=== PATIENT | male | born 1970 | race Caucasian/White ===

== ENCOUNTER 2023-08-21 19:54 | Inpatient (IN) | payer MEDICAID, OTHER, SELFPAY ==
--- NOTE | ~2023-08-21 | CT_ITS ---
EXAMINATION: CT ABDOMEN AND PELVIS WITH CONTRAST CLINICAL INFORMATION: Right lower quadrant abdominal pain. COMPARISON: None available. TECHNIQUE: Multidetector volumetric images were obtained from the superior aspect of the liver through the pubic symphysis following administration 85 mL of Omnipaque 350 intravenous contrast. Sagittal and coronal reformatted images were obtained on the technologist's workstation. Oral contrast: No. This CT examination was performed using dose optimization techniques as appropriate, variously including the following: *Automated exposure control *Adjustment of mA and/or kV according to patient size (this includes techniques or standardized protocols for targeted exams where dose is matched to indication/reason for exam; i.e. extremities or head) *Use of iterative reconstruction technique DLP: 574 mGy-cm FINDINGS: LUNG BASES: The visualized lung bases are unremarkable. LIVER, GALLBLADDER, AND BILIARY TREE: The liver is normal in size, shape, and attenuation. No focal hepatic lesion or biliary ductal dilatation is present. The gallbladder is unremarkable with no evidence of radiopaque gallstones, gallbladder wall thickening, or obvious pericholecystic inflammatory changes. PANCREAS: Unremarkable. SPLEEN: Unremarkable. ADRENAL GLANDS: Unremarkable. KIDNEYS AND URETERS: The kidneys are normal in size, shape, and attenuation. Mild right-sided hydroureteronephrosis. Hydroureter extends to the right inguinal region where there appears to be a change in caliber adjacent to right lower quadrant bowel loops which are just proximal to the inguinal hernia. No renal or ureteral stone. No left-sided hydronephrosis or hydroureter. BLADDER: Unremarkable. GASTROINTESTINAL TRACT: Sigmoid diverticulosis without evidence of acute diverticulitis. No bowel wall thickening or inflammatory change. Unremarkable appendix. Indirect right inguinal hernia containing multiple small bowel loops. There is fecalization proximal to, within, and distal to the inguinal hernia. Findings likely indicate a degree of partial obstruction. No significant bowel dilatation. Minimal associated stranding without significant wall thickening. PERITONEAL CAVITY: Right lower quadrant stranding and trace free fluid. No abscess formation. No intra-abdominal free air. ABDOMINAL WALL: Indirect right inguinal hernia containing small bowel loops. Small amount of free fluid within the hernia. LYMPH NODES: No significant lymphadenopathy. VASCULAR: Unremarkable. PELVIC VISCERA: The prostate and seminal vesicles are unremarkable. OSSEOUS STRUCTURES: Unremarkable. CT/CT abdomen pelvis w IV con IMPRESSION: 1. Indirect right inguinal hernia containing multiple small bowel loops. There is fecalization proximal to, within, and distal to the inguinal hernia. Findings likely indicate a degree of partial obstruction. No significant bowel dilatation or bowel wall thickening. Minimal associated stranding and trace free fluid. No abscess formation. No intra-abdominal free air. 2. Mild right-sided hydroureteronephrosis. Hydroureter extends to the right inguinal region where there appears to be a change in caliber adjacent to right lower quadrant bowel loops which are just proximal to the inguinal hernia, consistent with partial obstruction. No renal or ureteral stone. 4. Sigmoid diverticulosis without evidence of acute diverticulitis. Unremarkable appendix. Fleischner guidelines were followed.
[2023-08-21 19:58] VITALS: BP 146/68; PULSE 80; RESP 16; TEMP 37.5; O2SAT 99; BMI 30.8
[2023-08-21 20:43] LABS: MANUAL DIFF FLAG NO
[2023-08-21 20:44] LABS: Basophils Percent Auto 0.1 % (0-2); Eosinophils Absolute Auto 0.1 X10*3/uL (0.0-0.4); Eosinophils Percent Auto 0.8 % (0-4); Hematocrit 43.9 % (42.0-52.0); Hemoglobin 14.6 g/dl (14.0-18.0); Imm Gran Abs Auto 0.02 X10*3/uL (0.00-0.03); Imm Gran Pct Auto 0.2 % (0.0-0.4); Lymphocytes Absolute Auto 1.9 X10*3/uL (1.2-4.9); Lymphocytes Percent Auto 21.6 % (20-40); Mean Corpuscular HGB Conc 33.3 g/dl (31.0-36.0); Mean Corpuscular Hemoglobin 29.4 pg (27.0-33.0); Mean Corpuscular Volume 88.5 fL (80.0-98.0); Monocytes Absolute Auto 0.5 X10*3/uL (0.1-1.2); Monocytes Percent Auto 6.3 % (2-11); Neutrophils Absolute Auto 6.1 x10*3/uL (2.0-8.3); Platelet Count 194 X10*3/uL (160-400); Red Blood Count 4.96 X10*6/uL (4.60-5.80); Red Cell Distribution Width 12.3 % (11.0-16.0); White Blood Count 8.6 X10*3/uL (4.8-10.8)
[2023-08-21 20:58] LABS: Alanine Aminotransferase 25 U/L (0-40); Albumin Level 4.5 g/dL (3.5-5.0); Alkaline Phosphatase 59 U/L (39-117); Anion Gap 12 (12-20); Aspartate Amino Transferase 20 U/L (5-37); Bilirubin Total 0.3 mg/dL (0.0-1.0); Blood Urea Nitrogen 20 mg/dL (9-16); Calcium 9.2 mg/dL (8.4-10.2); Carbon Dioxide 28 mmol/L (22-29); Chloride 104 mmol/L (96-108); Estimated Glomerular Filt Rate > 60; Glucose Random 108 mg/dL (60-115); Potassium 4.4 mmol/L (3.3-5.1); Sodium 140 mmol/L (135-145); Total Protein 7.5 g/dL (6.5-8.0)
[2023-08-21 21:38] LABS: Appearance Urine Clear; Color Urine Yellow; Glucose Urine UA Negative (Negative); Leukocyte Esterase Urine Negative (Negative); Nitrite Urine Negative (Negative); PH 6.5 (5.0-9.0); Specific Gravity - Urine 1.025 (1.005-1.025); Urine Blood Negative (Negative); Urine Ketones Negative (Negative); Urine Protein Negative (Neg-Trace)
[2023-08-22] MEDS: Acetaminophen 325 MG TABLET 975 MG PO (00:34)
[2023-08-22 00:36] VITALS: BP 139/76; PULSE 84; RESP 17; TEMP 37.2; O2SAT 98
[2023-08-22 08:08] VITALS: BP 163/91; PULSE 76; RESP 19; TEMP 37.1; O2SAT 98
--- NOTE | 2023-08-22 08:12 | ED.ABDPAIN ---
HPI - Abdominal Pain General Chief Complaint: Abdominal Pain Stated Complaint: Abdominal pain Time Seen by Provider: 08/22/23 08:06 Source: patient and family Mode of arrival: ambulatory Limitations: no limitations History of Present Illness ED Provider: DARCIE HPI narrative: 52 yo male with no sig PMH no prior surgeries noted some mild right lower abdominal pain x 2 days that worsened yesterday with nausea and now pain radiating to the R testicle. He has no dysuria or hematuria no past hx of kidney stones. Notes a bulge in abdomen MD elicited complaint: abdominal pain Pertinent past history: none Onset (ago): day(s) (2) Pain Consistency: constant Location: RLQ Severity: moderate Quality: aching Radiation: none Migration to: no migration Exacerbating factors: movement Relieving factors: nothing Associated symptoms: nausea Related Data Allergies Allergy/AdvReac Type Severity Reaction Status Date / Time No Known Allergies Allergy Verified 08/21/23 20:36 Review of Systems Review of Systems Constitutional : No Weight loss, No Fever, No Chills ENT/Mouth : No sore throat, No Rhinorrhea Eyes: No Swelling, No Redness Cardiovascular : No Chest Pain, No SOB, No Edema Respiratory : No Cough, No Sputum, No Wheezing Gastrointestinal : Positive Nausea, no Vomiting, no Diarrhea, positive abdominal Pain, No Hematochezia, No Melena Genitourinary : No Dysuria, No Urinary Frequency, No Hematuria, No Urgency Musculoskeletal : No joint pain, No Myalgias, No Joint Swelling Skin : No Skin Lesions, No rash Neuro : No Weakness, No Numbness, No Dizziness, No Headache All other systems reviewed and are negative. [facility] Past Medical History Attestation statement: The following information was validated with the patient. Source: old records reviewed Medical History No pertinent past medical history Social History Social History (Updated 08/22/23 @ 08:15 by Sharon Reyes DO) Patient Tobacco Use Status: Never used Tobacco Smoked in Last 30 Days: No Use of substances other than those prescribed or required for medical reasons: No Advance Directives: No Advance Directives Information Provided: Yes Do you have a plan to hurt others: No Plan Physical Exam ED Vital Signs: Vital Signs - 24 hr 08/21/23 19:58 08/22/23 00:36 08/22/23 08:08 Temperature 99.5 F 98.9 F 98.8 F Pulse Rate 80 84 76 Respiratory Rate 16 17 19 Blood Pressure 146/68 H 139/76 163/91 H Pulse Oximetry 99 98 98 Oxygen Delivery Method Room Air Room Air Room Air BMI result Body Mass Index 30.8 Appearance: Alert. Oriented X3. No acute distress. Eyes: Pupils equal, round and reactive to light. ENT: Pharynx normal. Neck: Normal inspection. Neck supple. CVS: Normal heart rate and rhythm. Pulses normal. Respiratory: No respiratory distress. Breath sounds normal. Abdomen: slight distention and moderate RLQ ttp with + rovsings sign, has R sided inguinal hernia that I cannot reduce and is very ttp morphine ordered but given duration of symptoms and ttp I am not sure I want to reduce it Skin: Skin warm and dry. Normal skin color. Normal skin turgor. Extremities: No lower extremity edema. No calf ttp Neuro: Oriented X 3. No motor deficit. No sensory deficit. Course Course Course Narrative: Dr. Man has seen the patient at bedside Medical Decision Making Medical Decision Making [facility] Narrative: 52 yo male with no sig PMH here with worsening RLQ pain at this time exam concerning for incarcerated hernia at this time will need basic labs, IV toradol and morphine for pain, CT scan for incarcerated hernia, renal colic, appendicitis. I am going to hold off trying to reduce the hernia given duration of symptoms and degree of pain with distention Differential Diagnosis Differential Diagnoses: The differential diagnosis associated with the presentation includes appendicitis, renal colic, incarcerated hernia Admission/Observation Consideration of admission/observation: Escalation of care including admission/observation considered admit to surgery Consult Healthcare Provider Management of the patient was discussed with: Staffing Administrator Dr. Man to come see patient 918am Lab Data [facility] Lab Attestation statement: I reviewed the patient's lab results. 08/21/23 20:38 08/21/23 20:38 Labs: Lab Results 08/21/23 08/21/23 Range/Units 20:38 21:28 WBC 8.6 (4.8-10.8) X10*3/uL RBC 4.96 (4.60-5.80) X10*6/uL Hgb 14.6 (14.0-18.0) g/dl Hct 43.9 (42.0-52.0) % MCV 88.5 (80.0-98.0) fL MCH 29.4 (27.0-33.0) pg MCHC 33.3 (31.0-36.0) g/dl RDW 12.3 (11.0-16.0) % Plt Count 194 (160-400) X10*3/uL MPV 11.0 (9.4-12.4) fL Immature Gran % (Auto) 0.2 (0.0-0.4) % Neut % (Auto) 71.0 (45-73) % Lymph % (Auto) 21.6 (20-40) % [place] % (Auto) 6.3 (2-11) % Eos % (Auto) 0.8 (0-4) % Baso % (Auto) 0.1 (0-2) % Lymph # (Auto) 1.9 (1.2-4.9) X10*3/uL [place] # (Auto) 0.5 (0.1-1.2) X10*3/uL Eos # (Auto) 0.1 (0.0-0.4) X10*3/uL Baso # (Auto) 0.0 (0.0-0.2) X10*3/uL Abs Immat Gran (auto) 0.02 (0.00-0.03) X10*3/uL Absolute Neuts (auto) 6.1 (2.0-8.3) x10*3/uL Absolute Nucleated RBC 0.000 (0.0-0.012) X10*3/uL Nucleated RBC % (auto) 0.0 (0.0-0.2) /100WBC Sodium 140 (135-145) mmol/L Potassium 4.4 (3.3-5.1) mmol/L Chloride 104 (96-108) mmol/L Carbon Dioxide 28 (22-29) mmol/L Anion Gap 12 (12-20) BUN 20 H (9-16) mg/dL Creatinine 1.23 (0.5-1.4) mg/dL Estim Creat Clear Calc 70.0 Estimated GFR > 60 Random Glucose 108 (60-115) mg/dL Calcium 9.2 (8.4-10.2) mg/dL Total Bilirubin 0.3 (0.0-1.0) mg/dL AST 20 (5-37) U/L ALT 25 (0-40) U/L Alkaline Phosphatase 59 (39-117) U/L Total Protein 7.5 (6.5-8.0) g/dL Albumin 4.5 (3.5-5.0) g/dL Urine Color Yellow Urine Appearance Clear Urine pH 6.5 (5.0-9.0) Ur Specific [place] 1.025 (1.005-1.025) Urine Protein Negative (Neg-Trace) mg/dL Urine Glucose (UA) Negative (Negative) mg/dL Urine Ketones Negative (Negative) mg/dL Urine Blood Negative (Negative) Urine Nitrite Negative (Negative) Ur Leukocyte Esterase Negative (Negative) Independent Interpretation I performed an independent interpretation of an: CT Scan Radiology Impression Discussion of test interpretation with radiology: I have reviewed the radiologist's reading. Independent Historian Clinical information obtained from an independent historian. History obtained from or confirmed by: Other (family) Medications Administered Generic Name Dose Route Start Last Admin Trade Name Freq PRN Reason Stop Dose Admin Sodium Chloride 1,000 mls @ 999 mls/hr 08/22/23 09:16 08/22/23 09:53 Ns IV 08/22/23 10:16 999 mls/hr .Q1H1M ONE Administration Discontinued Medications Generic Name Dose Route Start Last Admin Trade Name Freq PRN Reason Stop Dose Admin Acetaminophen 975 mg 08/22/23 00:31 08/22/23 00:34 Acetaminophen 325 Mg Tablet PO 08/22/23 00:32 975 mg ONCE ONE Administration Sodium Chloride 1,000 mls @ 999 mls/hr 08/22/23 08:09 08/22/23 09:54 Ns IV 08/22/23 09:09 Infused .Q1H1M ONE Infusion Iohexol 85 ml 08/22/23 09:06 08/22/23 09:06 Iohexol 350 Mg/Ml 100 Ml Infus..Btl IV 08/22/23 09:07 85 ml ONCE ONE Administration Ketorolac Tromethamine 15 mg 08/22/23 08:09 08/22/23 08:38 Ketorolac Tromethamine 15 Mg/Ml Vial IVPUSH 08/22/23 08:10 15 mg ONCE ONE Administration Morphine Sulfate 4 mg 08/22/23 08:09 08/22/23 08:38 Morphine Sulfate 4 Mg/Ml Cartridge IVPUSH 08/22/23 08:10 4 mg ONCE ONE Administration Protocol Morphine Sulfate 4 mg 08/22/23 09:16 08/22/23 09:53 Morphine Sulfate 4 Mg/Ml Cartridge IVPUSH 08/22/23 09:17 4 mg ONCE ONE Administration Protocol Ondansetron HCl 4 mg 08/22/23 08:09 08/22/23 08:38 Ondansetron Hcl 4 Mg/2 Ml Vial IVPUSH 08/22/23 08:10 4 mg ONCE ONE Administration Critical Care Time Critical Care Time Critical Care Time: Yes Total Critical Care Time: 45 Attestation: IVF x 2L, repeat IV morphine for pain, surgical consult, pain improvement with IV morphine I attest to this time spent taking care of the patient Discharge Plan Discharge Clinical Impression: Hernia Partial bowel obstruction Qualifiers: Intestinal obstruction type: other intestinal obstruction Qualified Code(s): K56.690 - Other partial intestinal obstruction Patient Disposition: Admitted As Inpatient Print Language: Kinyarwanda
[2023-08-22] MEDS: 0.9 % Sodium Chloride 1,000 ML 999 ML IV ×2 (08:38→09:53)
[2023-08-22] MEDS: Ketorolac Tromethamine 15 MG/ML VIAL IVPUSH (08:38)
[2023-08-22] MEDS: ondansetron HCL 4 MG/2 ML VIAL IVPUSH (08:38)
[2023-08-22] MEDS: Morphine Sulfate 4 MG/ML CARTRIDGE IVPUSH ×2 (08:38→09:53)
--- NOTE | 2023-08-22 08:48 | PC.NURSE ---
pt is alert and oriented, skin appropriate for ethnicity, respirations even and unlabored, pt reports lower right abd pain for a couple of days with nausea and states that his right groin/testicle area feels swollen, also had some difficulty urinating, abd soft but tender, abd sounds in all 4 quadrants
[2023-08-22] MEDS: iohexoL 350 MG/ML 100 ML INFUS..BTL 85 ML IV (09:06)
[2023-08-22 09:55] VITALS: BP 130/77; PULSE 68; RESP 18; TEMP 36.8; O2SAT 97
--- NOTE | 2023-08-22 10:02 | P.HPGS_ITS ---
History of Present Illness History of Present Illness Date of Service: 08/22/23 Chief complaint: non reducible right inguinal hernia Narrative: Dyana Patrick is a 52 year old male presenting to the emergency department yesterday afternoon after developing a painful right inguinal hernia. He reports having the hernia for several years in the lump would come and go however over the past several days the hernias become more persistent and uncomfortable. Over the last 24 hours he also reported nausea and vomiting because of the right groin pain. He denies fever or chills. He subsequently presented to the emergency department for further evaluation. Workup revealed a normal WBC. CT abdomen and pelvis confirmed the right inguinal hernia containing multiple loops of small bowel with a partial obstruction. He is admitted to the surgical service for further management and eventual repair. Review of Systems Review of Systems: Yes all other systems are reviewed and are negative Constitutional: Constitutional: Denies chills, Denies fever(s), Denies headache(s), Denies poor appetite and Denies weakness ENT: Denies headache(s) Cardiovascular: Cardiovascular: Denies chest pain, Denies irregular heart rhythm, Denies palpitations and Denies dyspnea Respiratory: Respiratory: Denies cough, Denies excessive phlegm production and Denies dyspnea Gastrointestinal: Gastrointestinal: Reports abdominal pain (Right groin as noted in HPI), Reports bloating, Reports change in bowel habits, Denies constipation, Denies heartburn, Denies diarrhea, Reports nausea and Reports vomiting Genitourinary: Genitourinary: Denies difficulty urinating and Denies urinary frequency Musculoskeletal: Musculoskeletal: Denies back pain, Denies muscle weakness and Denies numbness Integumentary/Breasts: Skin/Breast: Denies changing lesions and Denies unusual bruising Neurologic: Denies headache(s), Denies numbness, Denies paresthesias and Denies weakness Psychiatric: Psychiatric: Denies anxiety and Denies depression Endocrine: Endocrine: Denies palpitations Hematologic/Lymphatic: Hematologic/Lymphatic: Denies lymphadenopathy PMFSH Past Medical History Medical History (Updated 08/22/23 @ 10:07 by Celestino Man MD) Irreducible right inguinal hernia No pertinent past medical history Social History Social History (Updated 08/22/23 @ 08:15 by Sharon Reyes DO) Patient Tobacco Use Status: Never used Tobacco Smoked in Last 30 Days: No Use of substances other than those prescribed or required for medical reasons: No Advance Directives: No Advance Directives Information Provided: Yes Do you have a plan to hurt others: No Plan Meds Allergies Allergy/AdvReac Type Severity Reaction Status Date / Time No Known Allergies Allergy Verified 08/21/23 20:36 Active Medications: Current Medications Hydromorphone HCl (Hydromorphone Hcl 0.5 Mg/0.5 Ml Syringe) 0.5 mg IVPUSH Q3H PRN; Protocol PRN Reason: Pain, Severe (Pain Scale 7-10) Sodium Chloride (Ns) 1,000 mls @ 999 mls/hr IV .Q1H1M ONE Stop: 08/22/23 10:16 Last Admin: 08/22/23 09:53 Dose: 999 mls/hr Acetaminophen (Ofirmev) 1,000 mg in 100 mls @ 400 mls/hr IV Q6H MARIAMA Dextrose/Lactated Ringer's (D5lr) 1,000 mls @ 125 mls/hr IVCONT .Q8H MARIAMA Melatonin (Melatonin 3 Mg Tablet) 6 mg PO BEDTIME PRN PRN Reason: Insomnia Ondansetron HCl (Ondansetron Hcl 4 Mg/2 Ml Vial) 4 mg IVPUSH QID PRN PRN Reason: Nausea Sodium Chloride (0.9 % Sodium Chloride Flush 3 Ml Syringe) 3 ml IVFLUSH QSHIFT MARIAMA Physical Exam Vital Signs: Vital Signs: Last Vital Signs Temp 98.2 F 08/22/23 09:55 Pulse 68 08/22/23 09:55 Resp 18 08/22/23 09:55 BP 130/77 08/22/23 09:55 Pulse Ox 97 08/22/23 09:55 O2 Del Method Room Air 08/22/23 09:55 BMI result Body Mass Index 30.8 Const: General: cooperative and no acute distress Nutritional Appearance: well nourished Orientation/consciousness: patient oriented x3 Limitations: no limitations HEENT: Head: Yes normocephalic and Yes atraumatic Ears: hearing grossly normal bilaterally Resp: Effort & Inspection: normal respiratory effort, no audible wheezes, no cough and no respiratory distress Cardio: Jugular venous distension: no JVD GI: Other: Moderate size right inguinal hernia partially reducible with light pressure. Hernia returns when pressure stops. Overlying skin changes appreciated. No left inguinal hernia noted. Inspection: Yes normal to inspection Skin: Other: Warm, dry, no rash Neuro: General: patient oriented x3 Extrem: General: Yes no clubbing, cyanosis or edema Results Results Labs: Short CBC 08/21/23 Range/Units 20:38 WBC 8.6 (4.8-10.8) X10*3/uL Hgb 14.6 (14.0-18.0) g/dl Hct 43.9 (42.0-52.0) % Plt Count 194 (160-400) X10*3/uL BMP 08/21/23 20:38 Sodium 140 Potassium 4.4 Chloride 104 Carbon Dioxide 28 BUN 20 H Creatinine 1.23 Calcium 9.2 Liver Function 08/21/23 Range/Units 20:38 Total Bilirubin 0.3 (0.0-1.0) mg/dL AST 20 (5-37) U/L ALT 25 (0-40) U/L Alkaline Phosphatase 59 (39-117) U/L Albumin 4.5 (3.5-5.0) g/dL Urine 08/21/23 Range/Units 21:28 Urine Color Yellow Urine Appearance Clear Urine pH 6.5 (5.0-9.0) Ur Specific [place] 1.025 (1.005-1.025) Urine Protein Negative (Neg-Trace) mg/dL Urine Glucose (UA) Negative (Negative) mg/dL Additional studies: CT abdomen and pelvis reviewed. Right inguinal hernia containing terminal ileum noted. Fecalization proximal to the hernia suggesting partial obstruction. Remaining small bowel was not significantly inflamed or dilated. Air and stool noted within colon. Mild diverticulosis. Assessment and Plan (1) Irreducible right inguinal hernia: Status: Acute Plan 52-year-old male patient presenting with a prolonged history of a right inguinal hernia now with increased pain associated with this hernia. On examination he does have a moderate size right inguinal hernia which is reducible partially but not completely in the hernia returns when pressure is released. Laboratories revealed normal WBC. CT confirms small bowel containing right inguinal hernia without wall thickening or fluid. I recommended repair of this right inguinal hernia with mesh. Will be admitted to the hospital, made NPO and started on IV fluids. He has been added onto the operative schedule for tomorrow for repair. I reviewed the procedure, risks, and alternatives in detail and he consents to a repair of the right inguinal hernia, irreducible, with mesh. Quality Stroke Does the patient have a stroke diagnosis?: No VTE Prior VTE?: No VTE Risk Level:: Surgical - low VTE Device Contraindication: N/A - Device Ordered VTE Drug Contraindication: Treatment Not Indicated Procedures Date of Service Date of Service: 08/22/23
[2023-08-22] MEDS: Acetaminophen 1,000 MG/100 ML PIGGYBACK 400 MG IV ×3 (10:39→21:50)
--- NOTE | 2023-08-22 11:24 | PHA.MEDREC ---
Pharmacy Consult ? Medication Reconciliation Pharmacy has completed the medication reconciliation.
[2023-08-22] MEDS: Dextrose 5 % and Lactated Ring 1,000 ML 125 ML IVCONT ×2 (11:49→20:25)
[2023-08-22 12:18] VITALS: BMI 31.1
[2023-08-22 12:28] VITALS: BP 171/84; PULSE 64; RESP 18; TEMP 36.2; O2SAT 98
--- NOTE | 2023-08-22 12:45 | PC.NURSE ---
Admission assessment done via slip mixer services with Jointer Operator Matt
[2023-08-22 15:14] VITALS: BP 140/77; PULSE 73; RESP 18; TEMP 37; O2SAT 98
[2023-08-22 19:01] VITALS: BP 128/76; PULSE 55; RESP 18; TEMP 36.2; O2SAT 98
[2023-08-23] VITALS (10 sets, daily range): BP systolic 113–132; BP diastolic 57–70; PULSE 54–84; RESP 15–18; TEMP 34.3–36.8; O2SAT 96–99
[2023-08-23] MEDS: Acetaminophen 1,000 MG/100 ML PIGGYBACK 400 MG IV ×4 (05:04→21:25)
[2023-08-23] MEDS: Dextrose 5 % and Lactated Ring 1,000 ML 125 ML IVCONT ×2 (05:08→14:33)
--- NOTE | 2023-08-23 11:49 | MHC.SHP ---
Pre-Procedural Eval Section A - 24 Hr Update-Section A only Date of Service: 08/23/23 The patient is an INPATIENT: Yes Changes since office visit: Yes Patient answered all questions; No Cold of Flu in the past 2 weeks, No New Medical Problems and No Changes in Medication The patient has been examined within 24 hours of the surgical procedure. The History & Physical has been completed within 30 days and I have reviewed it.: Yes Section B - Complete if H&P > 30 days Chief Complaint: non reducible right inguinal hernia Allergies: Allergies Allergy/AdvReac Type Severity Reaction Status Date / Time No Known Allergies Allergy Verified 08/21/23 20:36 Plan Diagnosis/Plan: Unchanged I have reviewed the history and physical and performed a pertinent physical examination on my patient. No changes have occurred unless specified. Time Spent With Patient Time: Total time managing care of this patient today ____ minutes.
--- NOTE | 2023-08-23 12:18 | HO.ANESPROP2 ---
HPI - Anesthesia Eval Consult details Narrative: 52 yo M admitted with incarcerated inguinal hernia PMFSH Active Problems Active Problems: All Active Problems Irreducible right inguinal hernia (Acute) Hernia (Acute) Partial bowel obstruction (Acute) Past Medical History Medical History (Updated 08/22/23 @ 10:07 by Celestnio Man MD) Irreducible right inguinal hernia No pertinent past medical history Family History Family history of problems with anesthesia: No Surgical History History of Problems with Anesthesia: No (never had surgery before) Social History Social History (Updated 08/22/23 @ 08:15 by Sharon Reyes DO) Household Members: Children Housing: House Do you presently have visiting nurse or other home services: No Patient Tobacco Use Status: Never used Tobacco Second Hand Smoke Exposure: No Meds Allergies Allergy/AdvReac Type Severity Reaction Status Date / Time No Known Allergies Allergy Verified 08/21/23 20:36 Active Medications: Current Medications Hydromorphone HCl (Hydromorphone Hcl 0.5 Mg/0.5 Ml Syringe) 0.5 mg IVPUSH Q3H PRN; Protocol PRN Reason: Pain, Severe (Pain Scale 7-10) Acetaminophen (Ofirmev) 1,000 mg in 100 mls @ 400 mls/hr IV Q6H COUNTS INCLUDE 234 BEDS AT THE [facility] Last Infusion: 08/23/23 10:15 Dose: Infused Dextrose/Lactated Ringer's (D5lr) 1,000 mls @ 125 mls/hr IVCONT .Q8H COUNTS INCLUDE 234 BEDS AT THE [facility] Last Admin: 08/23/23 05:08 Dose: 125 mls/hr Melatonin (Melatonin 3 Mg Tablet) 6 mg PO BEDTIME PRN PRN Reason: Insomnia Ondansetron HCl (Ondansetron Hcl 4 Mg/2 Ml Vial) 4 mg IVPUSH QID PRN PRN Reason: Nausea Sodium Chloride (0.9 % Sodium Chloride Flush 3 Ml Syringe) 3 ml IVFLUSH QSHIFT COUNTS INCLUDE 234 BEDS AT THE [facility] Last Admin: 08/23/23 07:13 Dose: Not Given Home Medications ?Medication ?Instructions ?Recorded ?Confirmed ?Last Taken ?Type acetaminophen 325 mg tablet 650 mg PO Q6H PRN Pain 08/22/23 08/22/23 Unknown History (Tylenol) Exam Exam Date and Time: August 23, 2023 1215 Height,Weight and Vital Signs: Height 5 ft 5 in Weight 84.7 kg Last Vital Signs Temp 98.3 F 08/23/23 11:57 Pulse 62 08/23/23 11:57 Resp 18 08/23/23 11:57 BP 132/70 08/23/23 11:57 Pulse Ox 96 08/23/23 11:57 O2 Del Method Room Air 08/23/23 11:57 Pertinent Lab Results Pertinent Lab Results: Laboratory Tests 08/21/23 08/21/23 08/22/23 20:38 21:28 09:37 WBC 8.6 RBC 4.96 Hgb 14.6 Hct 43.9 MCV 88.5 MCH 29.4 MCHC 33.3 RDW 12.3 Plt Count 194 MPV 11.0 Immature Gran % (Auto) 0.2 Neut % (Auto) 71.0 Lymph % (Auto) 21.6 [place] % (Auto) 6.3 Eos % (Auto) 0.8 Baso % (Auto) 0.1 Lymph # (Auto) 1.9 [place] # (Auto) 0.5 Eos # (Auto) 0.1 Baso # (Auto) 0.0 Abs Immat Gran (auto) 0.02 Absolute Neuts (auto) 6.1 Absolute Nucleated RBC 0.000 Nucleated RBC % (auto) 0.0 Sodium 140 Potassium 4.4 Chloride 104 Carbon Dioxide 28 Anion Gap 12 BUN 20 H Creatinine 1.23 Estim Creat Clear Calc 70.0 Estimated GFR > 60 Random Glucose 108 Calcium 9.2 Total Bilirubin 0.3 AST 20 ALT 25 Alkaline Phosphatase 59 Total Protein 7.5 Albumin 4.5 Urine Color Yellow Urine Appearance Clear Urine pH 6.5 Ur Specific [place] 1.025 Urine Protein Negative Urine Glucose (UA) Negative Urine Ketones Negative Urine Blood Negative Urine Nitrite Negative Ur Leukocyte Esterase Negative Blood Type A Positive Antibody Screen NEGATIVE Airway Mallampati Class: II TM Dist: >3cm Neck ROM: Full Loose/Missing/Broken Teeth: No (patient denies any loose or broken teeth) Heart: S1S2 Lungs: CTAB Assessment and Plan Assessment Anesthesia Assessment: Anesthesia Plan Discussed and Chart Reviewed Final Anesthetic Review Family History of Problems with Anesthesia: No History of Problems with Anesthesia: No (never had surgery before) NPO: Yes ASA Class: I Final Preanesthetic Review: No Changes in Pt Med Stat, Meds/Allgs Chart Reviewed, Consent Obtained/Reviewed and Anes Risks/Benef Reviewed Patient Risk: Low Procedure Risk: Low Anesthetic Plan Anesthetic Plan: GA and Agree w/ Assess. and Plan Disposition: Standard PACU
--- NOTE | 2023-08-23 12:39 | W.PM.OPN ---
Operative Note Operative Note Date of Service: 08/23/23 Narrative: Preoperative diagnosis: Irreducible right inguinal hernia Postoperative diagnosis: Same Procedure: Repair of a reducible right inguinal hernia with mesh Surgeon: Celestino Man MD Air Bag Builder: Viv Clemente PA-C Anesthesia: General LMA Indications for procedure: 52-year-old male patient presenting with complaints of pain in the right groin found on examination to have a palpable lump in the right groin which was non reducible. CT abdomen and pelvis revealed right inguinal hernia containing multiple loops of small bowel. He presents today for repair of this irreducible right inguinal hernia Operative findings: Indirect inguinal hernia Specimen: Hernia sac right side Estimated blood loss: 5 mL Complications: None Procedure details: Patient was brought to the OR and placed in a supine position. After administering general anesthesia the patient's abdomen was prepped with ChloraPrep and draped in a sterile fashion. A surgical time-out was called the consent confirmed. Patient received preoperative antibiotics and Venodyne boots were in place. Local anesthesia was infiltrated over the right inguinal ligament using bupivacaine 0.5% plain. An incision was then made over the right inguinal ligament and carried out through subcutaneous tissue, past Bonita's fascia up to the external oblique aponeurosis. Additional local was infiltrated below the aponeurosis. Incision was then made with a scalpel and widened with the Metzenbaum scissors. The spermatic cord was then dissected free from the inguinal canal retracted using a Manuel drain. A thickened edematous spermatic cord was identified. The floor of the inguinal canal was found to be intact. Fibers of the cremaster muscle were then and the hernia sac identified. This was dissected down to the internal ring. Again the cord was noted to be extremely edematous from the previous incarceration. No bowel was noted within the hernia sac at the time of repair. The sac was excised and sent to pathology for further examination. This was ligated using a 0 Polysorb suture. Attention was then directed to the floor of the inguinal canal. Fibers of the internal oblique and transversalis aponeurosis were then incised. A preperitoneal space was then created using a combination of blunt dissection and Ray-Taylor dissection. A large extended PHS mesh was then obtained. The circular underlay was deployed within the preperitoneal space. The overlay was then secured to the pubic tubercle, conjoined tendon, and shelving edge of the inguinal ligament using a 0 Polysorb suture. A slit was made in the mesh in the mesh wrapped around the spermatic cord at the internal ring. This was then secured to the shelving edge using a 0 Polysorb suture. The repair was made loose enough to allow passage of the index finger tip only. The remainder of the mesh were was placed below the external oblique aponeurosis laterally. Wounds were then irrigated with saline solution and suctioned dry. Wounds were checked for hemostasis. External oblique aponeurosis was then closed using a running 2-0 Polysorb suture. 6 mL of Zenrelef was then instilled below the external oblique aponeurosis. Bonita's fascia and dermis were then reapproximated using interrupted 3-0 Polysorb sutures. Skin was closed using a running subcuticular 4-0 Polysorb suture. Sterile dressings consisting of Steri-Strips, 2 x 2 gauze and Tegaderm were then applied. The patient tolerated the procedure well. Sponge, instrument, and needle counts reported as correct. The patient was transferred to PACU in stable condition.
[2023-08-23] MEDS: oxyCODONE HCl Immed Release 5 MG TABLET PO ×2 (15:14→21:24)
--- NOTE | 2023-08-23 16:26 | MHC.CM.PN ---
CM MET WITH PT WITH TRAUMA COORDINATOR PT REPORTS HE LIVES WITH HIS DAUGHTER AND IS INDEPENDENT WITH CARE HE HAS NO DME AND NO SERVICES PT COMPLETED A HCP TODAY PCP AT [facility] DCP: HOME NO SERVICES VIA PRIVATE TRANSPORT
[2023-08-24] MEDS: 0.9 % Sodium Chloride Flush 3 ML SYRINGE IVFLUSH (00:12)
[2023-08-24] MEDS: Dextrose 5 % and Lactated Ring 1,000 ML 125 ML IVCONT ×2 (00:13→07:57)
[2023-08-24 03:20] VITALS: BP 130/73; PULSE 65; RESP 18; TEMP 36.7; O2SAT 98
[2023-08-24] MEDS: Acetaminophen 1,000 MG/100 ML PIGGYBACK 400 MG IV ×2 (04:41→09:45)
[2023-08-24 05:11] VITALS: RESP 18
[2023-08-24 07:47] VITALS: BP 124/73; PULSE 61; RESP 17; TEMP 36.3; O2SAT 96
--- NOTE | 2023-08-24 08:25 | PM.PNGS ---
Subjective Subjective Date of Service: 08/24/23 Interval history: Tolerating solid diet without nausea or vomiting. Pain is well controlled. Passing flatus but no BM. OOB to bathroom. Physical Exam Vital Signs: Vital Signs: Last Vital Signs Temp 97.3 F 08/24/23 07:47 Pulse 61 08/24/23 07:47 Resp 17 08/24/23 07:47 BP 124/73 08/24/23 07:47 Pulse Ox 96 08/24/23 07:47 O2 Del Method Room Air 08/24/23 07:47 O2 Flow Rate 6 08/23/23 13:55 BMI result Body Mass Index 31.1 Const: General: comfortable, no acute distress and alert Resp: Effort & Inspection: normal respiratory effort GI: Inspection: Yes distended (mild, soft) and Yes incision (dressing c/d/i) Palpation (GI): Soft to palpation, Tenderness to palpation present (GI) (mild incisional) and no guarding Skin: General skin exam: no rashes or lesions noted Objective Data Active Medications Hydromorphone HCl (Hydromorphone Hcl 0.5 Mg/0.5 Ml Syringe) 0.5 mg IVPUSH Q3H PRN; Protocol PRN Reason: Pain, Severe (Pain Scale 7-10) Acetaminophen (Ofirmev) 1,000 mg in 100 mls @ 400 mls/hr IV Q6H [facility] Last Infusion: 08/24/23 04:56 Dose: Infused Documented By: WINSTON Dextrose/Lactated Ringer's (D5lr) 1,000 mls @ 125 mls/hr IVCONT .Q8H [facility] Last Admin: 08/24/23 07:57 Dose: 125 mls/hr Documented By: ZULEYMA Melatonin (Melatonin 3 Mg Tablet) 6 mg PO BEDTIME PRN PRN Reason: Insomnia Ondansetron HCl (Ondansetron Hcl 4 Mg/2 Ml Vial) 4 mg IVPUSH QID PRN PRN Reason: Nausea Oxycodone HCl (Oxycodone Hcl Immed Release 5 Mg Tablet) 5 mg PO Q6H PRN PRN Reason: Pain, Moderate(Pain Scale 4-6) Last Admin: 08/23/23 21:24 Dose: 5 mg Documented By: TAMIKO Sodium Chloride (0.9 % Sodium Chloride Flush 3 Ml Syringe) 3 ml IVFLUSH QSHIFT MARIAMA Last Admin: 08/24/23 07:16 Dose: Not Given Documented By: ZULEYMA Non-Admin Reason: IV Running Labs 08/21/23 20:38 08/21/23 20:38 Procedures Date of Service Date of Service: 08/24/23 Progress Note: A&P Assessment and plan (1) Irreducible right inguinal hernia: Status: Acute Plan POD #1 s/p Repair of a reducible right inguinal hernia with mesh. PSBO resolved. Tolerating solid diet with evidence of GI function. Pain well controlled. Abd benign with appropriate post op tenderness, dressing c/d/i, no significant distention. Encouraged to ambulate halls. Will return and if tolerating breakfast, ambulating without difficulty, stable for dc to home. Patient comfortable with plan. Begin bowel regimen. Time Spent With Patient Time: Total time managing care of this patient today ____ minutes. Quality Stroke Does the patient have a stroke diagnosis?: No VTE Prior VTE?: No VTE Risk Level:: Surgical - low VTE Device Contraindication: N/A - Device Ordered VTE Drug Contraindication: Treatment Not Indicated
[2023-08-24] MEDS: Docusate Sodium 100 MG CAPSULE PO (09:43)
[2023-08-24] MEDS: polyethylene glycoL 3350 17 GM POWD.PACK PO (09:43)
--- NOTE | 2023-08-24 10:53 | P.DS_ITS ---
DS: Providers Provider Date of Service: 08/24/23 Date of admission: 08/22/23 09:54 Date of discharge: 08/24/23 Primary care physician: Macrina Physician Attending physician on admission: Celestino Man Attending physician on discharge: Celestino Man DS: Diagnosis Discharge Diagnosis (1) Irreducible right inguinal hernia: Status: Acute DS: Summary Hospital Course Hospital Course: HPI AT ADMISSION: Dyana Patrick is a 52 year old male presenting to the emergency department yesterday afternoon after developing a painful right inguinal hernia. He reports having the hernia for several years in the lump would come and go however over the past several days the hernias become more persistent and uncomfortable. Over the last 24 hours he also reported nausea and vomiting because of the right groin pain. He denies fever or chills. He subsequently presented to the emergency department for further evaluation. Workup revealed a normal WBC. CT abdomen and pelvis confirmed the right inguinal hernia containing multiple loops of small bowel with a partial obstruction. HOSPITAL COURSE: He was admitted to the surgical service for further management and eventual repair of the inguinal hernia, PSBO. He was made NPO and started on IV fluids. As he had no signs of strangulation, he was been added onto the operative schedule for the following day for repair. He agrees. On 08/23/23, repair of a reducible right inguinal hernia with mesh was performed by Dr. Man without complication. The patient tolerated the procedure well. He had an uncomplicated recovery course. On POD #1, he was tolerating a solid diet without nausea or vomiting. he was passing flatus. He had mild incisional pain that was well controlled. He was ambulating without difficulty. His abdomen was benign with appropriate post op tenderness and clean and intact dressing. He felt ready for discharge. He was discharged to home on 08/24/23 in stable condition. He is to follow up in the office in 1 week. Status at Discharge Functional status at discharge: independent ambulation Overall status at discharge: patient is progressing back to baseline Time Attestation Discharge Coordination Time (in mins): 30 Quality: Safe Use of Opioids Does Pt have an Active Cancer Diagnosis on the Problem List?: No Quality: Stroke Does the patient have a stroke diagnosis?: No Physical Exam Vital Signs: Vital Signs: Last Vital Signs Temp 97.3 F 08/24/23 07:47 Pulse 61 08/24/23 07:47 Resp 17 08/24/23 07:47 BP 124/73 08/24/23 07:47 Pulse Ox 96 08/24/23 07:47 O2 Del Method Room Air 08/24/23 07:47 O2 Flow Rate 6 08/23/23 13:55 BMI result Body Mass Index 31.1 Const: General: comfortable, no acute distress and alert Orientation/consciousness: patient oriented x3 Resp: Effort & Inspection: normal respiratory effort GI: Inspection: No distended and Yes incision (dressing c/d/i) Palpation (GI): Soft to palpation, Tenderness to palpation present (GI) (mild incisional) and no guarding Skin: General skin exam: no rashes or lesions noted Neuro: General: patient oriented x3 DS: Data Data Completed and Pending Pending studies at discharge: Pending at discharge 08/23/23 13:13 Surgical [PTH] Routine Discharge Plan Discharge Anticipated Discharge Date/Time: 08/24/23 11:37 Patient Disposition: Home, Self-Care Discharge Diagnosis: s/p repair of right inguinal hernia with mesh Referrals: Celestino Man MD [Physician] - 1 Week Physician,Macrina Lockwood [Primary Care Provider] - 1 Week Discharge Medications: New docusate sodium [Colace] 100 mg capsule 100 mg PO BID PRN (Reason: constipation) Qty: 30 0RF oxycodone 5 mg tablet 5 mg PO Q4H PRN (Reason: pain (scale score 7-10)) Qty: 24 0RF Rx Instructions: Partial Fill upon patient request. Continued acetaminophen [Tylenol] 325 mg Tablet 650 mg PO Q6H PRN (Reason: Pain) Discharge Orders: Discharge Order (Routine); Ordered 08/24/23 Ordered By: Viv Clemente Diet: Advance to usual diet Activity on Discharge: No heavy lifting Stand Alone Forms: Patient Portal Discharge page Print Language: Indonesian Activity Restrictions/Additional Instructions: If the incision area is tender, you may apply an ice pack for short intervals (No more than 20 minutes on, followed by at least 20 minutes off). Do not apply heat. Do not use creams, lotions, or topical antibiotics. Ok to shower. Remove clear dressings 3 days following your procedure. You have steri strips (small white cloth strips) covering your incision- these will fall off ~1 week. No heavy lifting (>10lbs) or strenuous activity! Take Tylenol Extra-strength 1-2 tabs every 6 hours for the first day, then as needed. Oxycodone every 6-8 hours as needed for pain. Colace 100 mg every day as needed for constipation. Follow up in office with Dr. Man in 1 week. ([phone]) Call Your Doctor If: -Your temperature exceeds 101.5? F -You experience excessive pain or swelling -You have an unexpected reaction to medication -You have excessive bleeding -You experience continued vomiting/nausea -Your incision begins to separate -Your incision shows signs of infection such as increased redness, swelling, excessive pain, drainage (light blood or clear fluid is normal) or heat Care Plan Goals: Return to baseline health and resume normal activities following recovery period. Health Concerns: right inguinal hernia, PSBO Plan of Treatment: s/p repair of right inguinal hernia with mesh Pain control F/u in office in 1 week, no heavy lifting/strenuous activities Assessment: Doing well post op.
--- NOTE | 2023-08-24 12:37 | MHC.CM.PN ---
PT DCD HOME SELF CARE
== END 2023-08-24 12:45 | disposition home or self-care (01) | DRG 228 ==
LOC: HO.ED 08-22 09:46 → HO.EDOVER 08-22 10:05 → HO.S3 08-22 10:49
PROVIDERS: Admitting Provider Surgery; Emergency Provider Emergency Medicine; Visit Provider Surgery
PROC: 0YU50JZ Supplement Right Inguinal Region with Synthetic Substitute, Open Approach (ICD-10-PCS; CPT 49505; principal; 2023-08-23 11:50)
DX: K40.31 Unilateral inguinal hernia, with obstruction, without gangrene, recurrent (principal)
CPT/HCPCS: 49505; 36415; 74177; 80053; 81003; 85025; 86850; 86900; 86901; 88302; 99221; 99285; C1781; C9088; J0131; J0665; J0690; J1100; J1885; J2250; J2270; J2405; J2704; J3010; Q9967

== ENCOUNTER → 2023-08-22 09:54 | Outpatient (BNV) | payer MEDICAID, SELFPAY | PROVIDERS: Admitting Provider Surgery; Emergency Provider Emergency Medicine; Visit Provider Surgery | DX: K40.30 Unilateral inguinal hernia, with obstruction, without gangrene, not specified as recurrent (principal) | CPT/HCPCS: 49505; 99024; 99222 ==

== ENCOUNTER 2023-09-07 13:03 | Outpatient (AMB) | payer MEDICAID, OTHER, SELFPAY ==
--- NOTE | 2023-09-07 13:11 | MHC.OFFVIS ---
Vital Signs 09/07/23 13:15 Height 5 ft 5 in Weight 185 lb 3.013 oz BMI 30.8 BP 120/70 Blood Pressure Location Lt brachial Position Sitting Pulse 72 Intake Visit Reasons: Follow up for hernia repair Intake Note: Patient is seen in office for post op assessment post right inguinal hernia repair. Pt c/o: admits to sore and tender, had some constipation at the beginning stopped taking pain meds and was able to have a bm sx:08/23/23 Clinical Systems Educator Required: Yes Clinical Systems Educator Language: Coagulating Operator Name: Rosy REBOLLEDO Information Interpreted: non-clinical & clinical Accompanied by: Self / Same As Patient Allergies No Known Allergies Allergy (Verified 09/07/23 13:18) HPI Comments Details: Dyana Patrick is a 52 year old male presenting to the emergency department on 08/22/2023 after developing a painful right inguinal hernia. He reports having the hernia for several years in the lump would come and go however over the past several days the hernias become more persistent and uncomfortable. Over the last 24 hours he also reported nausea and vomiting because of the right groin pain. He denies fever or chills. He subsequently presented to the emergency department for further evaluation. Workup revealed a normal WBC. CT abdomen and pelvis confirmed the right inguinal hernia containing multiple loops of small bowel with a partial obstruction. He was admitted to the surgical service for further management and eventual repair of the inguinal hernia, PSBO. He was made NPO and started on IV fluids. As he had no signs of strangulation, he was been added onto the operative schedule for the following day for repair. On 08/23/23, he underwent repair of a reducible right inguinal hernia with mesh. Since discharge she notes some shooting pain on occasion but generally feels well. He denies any nausea or vomiting. [facility], [facility] Medical History Irreducible right inguinal hernia No pertinent past medical history Social History Household Members: Children Housing: House Do you presently have visiting nurse or other home services: No Patient Tobacco Use Status: Never used Tobacco Second Hand Smoke Exposure: No service: No Physical Exam Const General: no acute distress Nutritional Appearance: well nourished Orientation/consciousness: patient oriented x3 Resp Effort & Inspection: normal respiratory effort GI Other: Soft, nondistended, nontender, well-healed incision in the right groin with some swelling no changes noted with Valsalva maneuvers. Neuro General: patient oriented x3 Extrem Other: No peripheral edema Assessment & Plan Assessment & Plan (1) Irreducible right inguinal hernia: Code(s): K40.30 - Unilateral inguinal hernia, with obstruction, without gangrene, not specified as recurrent Category: Medical (2) Partial bowel obstruction: Code(s): K56.600 - Partial intestinal obstruction, unspecified as to cause Category: Medical Qualifiers: Intestinal obstruction type: other intestinal obstruction Qualified Code(s): K56.690 - Other partial intestinal obstruction Plan Patient returns 1 week following repair of a incarcerated right inguinal hernia. He tolerated the procedure well and his wounds are healing nicely. The bowel obstruction has resolved as well. He should continue to avoid lifting greater than 10 lb for the next 4 weeks and return at that time for follow-up examination. Coding Level of Care Code Global (80021) Diagnoses Irreducible right inguinal hernia K40.30 Partial bowel obstruction K56.690 Intestinal obstruction type: other intestinal obstruction
[2023-09-07 13:15] VITALS: BP 120/70; PULSE 72; BMI 30.8
== END 2023-09-07 13:20 | disposition home or self-care (01) ==
PROVIDERS: Visit Provider Surgery
DX: K40.30 Unilateral inguinal hernia, with obstruction, without gangrene, not specified as recurrent (principal); K56.690 Other partial intestinal obstruction
CPT/HCPCS: 99024

== ENCOUNTER → 2023-09-07 13:03 | Outpatient (BNVA) | payer MEDICAID, OTHER, SELFPAY | PROVIDERS: Visit Provider Surgery | DX: Z48.815 Encounter for surgical aftercare following surgery on the digestive system (principal) | CPT/HCPCS: 99212 ==

== ENCOUNTER 2023-10-12 13:23 | Outpatient (AMB) | payer MEDICAID, SELFPAY ==
[2023-10-12 13:28] VITALS: BP 132/65; PULSE 86; BMI 30.8
--- NOTE | 2023-10-12 13:28 | A.OFFVIS_ITS ---
Vital Signs 10/12/23 13:28 Height 5 ft 5 in Weight 185 lb BMI 30.8 BP 132/65 Blood Pressure Location Rt brachial Position Sitting Pulse 86 Intake Visit Reasons: 1 mth Follow up for hernia repair Intake Note: This patient presents for a one month follow-up status post hernia repair. Patient c/o; reports testicle on right side is larger than left side, reports twitching sensation on the incision about 4 days ago. Wad Compressor Operator Adjuster Required: Yes Wad Compressor Operator Adjuster Language: Access Rn Services: Wad Compressor Operator Adjuster Present Wad Compressor Operator Adjuster Name: Tamika Information Interpreted: non-clinical & clinical Accompanied by: Self / Same As Patient Allergies No Known Allergies Allergy (Verified 10/12/23 13:37) Medication List - Last Reconciled 10/12/23 by Celestino Man MD acetaminophen (Tylenol) 650 mg PO Q6H PRN docusate sodium (Colace) 100 mg PO BID PRN HPI Comments Details: Dyana Patrick is a 52 year old male [facility]23 after developing a painful right inguinal hernia. He reports having the hernia for several years in the lump would come and go however over the past several days the hernias become more persistent and uncomfortable. Over the last 24 hours he also reported nausea and vomiting because of the right groin pain. He denies fever or chills. He subsequently presented to the emergency department for further evaluation. Workup revealed a normal WBC. CT abdomen and pelvis confirmed the right inguinal hernia containing multiple loops of small bowel with a partial obstruction. He was admitted to the surgical service for further management and eventual repair of the inguinal hernia, PSBO. He was made NPO and started on IV fluids. As he had no signs of strangulation, he was been added onto the operative schedule for the following day for repair. On 08/23/23, he underwent repair of a reducible right inguinal hernia with mesh. He returns for one-month postoperative visit today. He has occasional tingling in the incision and noted some slight swelling in the right testicle but generally feels well. He denies any pain. [facility] Medical History Irreducible right inguinal hernia No pertinent past medical history Social History Household Members: Children Housing: House Do you presently have visiting nurse or other home services: No Patient Tobacco Use Status: Never used Tobacco Second Hand Smoke Exposure: No service: No Physical Exam Vital Signs: Last Vital Signs Pulse 86 10/12/23 13:28 BP 132/65 10/12/23 13:28 BMI result Body Mass Index 30.8 Const General: no acute distress Nutritional Appearance: well nourished Orientation/consciousness: patient oriented x3 Resp Effort & Inspection: normal respiratory effort GI Other: Soft, nondistended, nontender, well-healed incision in the right groin with no hernia noted with Valsalva maneuvers. Scrotal sac and testicle are normal. Neuro General: patient oriented x3 Extrem Other: No peripheral edema Assessment & Plan Assessment & Plan (1) Irreducible right inguinal hernia: Code(s): K40.30 - Unilateral inguinal hernia, with obstruction, without gangrene, not specified as recurrent Category: Medical (2) Partial bowel obstruction: Code(s): K56.600 - Partial intestinal obstruction, unspecified as to cause Category: Medical Qualifiers: Intestinal obstruction type: other intestinal obstruction Qualified Code(s): K56.690 - Other partial intestinal obstruction Plan Patient returns 1 month following repair of an incarcerated right inguinal hernia with mesh. His wounds are well healed with no evidence of recurrent hernia. He may resume normal activity without restrictions and should follow up as needed. Coding Level of Care Code Global (50920) Diagnoses Irreducible right inguinal hernia K40.30 Partial bowel obstruction K56.690 Intestinal obstruction type: other intestinal obstruction
== END 2023-10-12 13:44 | disposition home or self-care (01) ==
PROVIDERS: Visit Provider Surgery
DX: K40.30 Unilateral inguinal hernia, with obstruction, without gangrene, not specified as recurrent (principal); K56.690 Other partial intestinal obstruction
CPT/HCPCS: 99024

== ENCOUNTER → 2023-10-12 13:23 | Outpatient (BNVA) | payer MEDICAID, OTHER, SELFPAY | PROVIDERS: Visit Provider Surgery | DX: Z09 Encounter for follow-up examination after completed treatment for conditions other than malignant neoplasm (principal); Z87.19 Personal history of other diseases of the digestive system | CPT/HCPCS: 99212 ==